=== PATIENT | male | born 1980 | race Caucasian/White ===

== ENCOUNTER 2017-02-05 22:18 | Emergency (ER) | payer OTHER ==
--- NOTE | ~2017-02-05 | ER ---
PATIENT'S NAME: [facility] AGE: 37 Y [address] ROOM: [place] [address] LOCATION: [facility] ADMIT DATE: 02/05/2017 ER/Outpatient Report DISCHARGE DATE: 02/06/2017 FAMILY PHYSICIAN: PHYSICIAN, NO ATTENDING PHYSICIAN: Anjali Espinoza Admission date and time documented on the medical record. I saw the patient at 2225 hours. CHIEF COMPLAINT: Nausea, vomiting, abdominal fullness, generalized weakness, lightheadedness, head pressure, and what sounds like a syncopal episode with possible shaking seizure-type activity. 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 I believe he went home from [facility], made a smoothie. He is trying to use a low-carb diet. He reduced a supplement in his smoothie. He got in the car, was [place] [address], when he got a lump in his upper abdomen, got nauseated. He then had some lightheadedness, dizziness, felt like he might pass out. Somehow, he called his and got off the road around [place] and does not remember anything after that incident. He was found in the bathroom in [place] collapsed, having had vomited. Paramedics were dispatched, and they brought the patient to the emergency department for evaluation. On arrival here, the patient was awake. However, he was somewhat confused and disoriented. He was able to speak, follow commands, but was not mentally sharp. His mental sharpness markedly improved to normal through the emergency room course. He had generalized weakness. He was still a bit lightheaded here in the emergency department. He did have some chest pressure and head pressure. Mild nausea but had no further vomiting here in the emergency department. He was chilled. No fever. No recent colds, coughs, or flus. No history of any heart problems, heart disease, or lung disease. No history of CVA, TIA, brain tumors, or seizure disorders. He has no endocrine problems with diabetes or thyroid disease. He has had no recent fall or trauma. No head trauma. No accidents. He had some fullness in his head, but no head pain. No eyes, ears, nose, throat, neck, or spine pain. No joint or muscle swelling, redness, or pain. No skin eruptions or rash. No history of psych issues. HOME MEDICATIONS: None. ALLERGIES: NONE. PATIENT'S NAME: [facility] AGE: 37 Y [address] ROOM: [place] [address] LOCATION: [facility] ADMIT DATE: 02/05/2017 ER/Outpatient Report DISCHARGE DATE: 02/06/2017 FAMILY PHYSICIAN: PHYSICIAN, NO ATTENDING PHYSICIAN: Anjali Espinoza SOCIAL HISTORY: Nonsmoker, nondrinker. SIGNIFICANT PAST MEDICAL HISTORY: Negative. OPERATIONS: None. REVIEW OF SYSTEMS: All systems reviewed by me are negative with the exception of those discussed in the history of the present illness. PHYSICAL EXAMINATION: VITAL SIGNS: Temperature 96.8 tympanic, pulse 68 and regular, respirations 16, blood pressure 138/62, O2 saturation on room air is 95%. HEAD: Normocephalic. No abrasion, contusion, laceration, swelling of the scalp or face. EYES: Extraocular muscles intact. PERRL. Sclerae and conjunctivae clear, nonicteric. EARS: Clear TMs bilaterally. NOSE: Clear. THROAT: Clear. Mucous membranes moist. Teeth and jaw intact. NECK: No nuchal rigidity. No thyromegaly or cervical adenopathy. No carotid bruits. No tenderness. Full range of motion. SPINE: Nontender. No deformity. LUNGS: Clear. Good air flow in all lung brunner. No rales, rhonchi, or wheezes. HEART: Regular. Pulses are palpable. ABDOMEN: Soft, nondistended, nontender. Active bowel tones. No organomegaly or abnormal mass palpable. No CVA tenderness. EXTREMITIES: Moves all 4 extremities. No peripheral edema, cyanosis, or deformity. NEURO: GLORY stroke scale is zero. The patient is awake, cooperative. No lateralizing weakness, numbness, tingling, or loss of function. Became oriented here in the emergency department. Initially, he was a little bit confused. No seizure activity. [place] chilled and had a little bit shakiness of his extremities at times. No true rigors. SKIN: Clear. LABORATORY DATA AND X-RAYS: Chest x-ray showed no acute infiltrate or changes. We will review x-ray with the radiologist. EKG showed sinus rhythm. No acute ST elevation, ischemic change, or arrhythmia. PATIENT'S NAME: [facility] AGE: 37 Y [address] ROOM: [place], [place] [address] LOCATION: [facility] ADMIT DATE: 02/05/2017 ER/Outpatient Report DISCHARGE DATE: 02/06/2017 FAMILY PHYSICIAN: PHYSICIAN, NO ATTENDING PHYSICIAN: Anjali Espinoza Laboratory: Troponin was normal, CK-MB was normal, CPK was normal. Magnesium 2.2. CMS was normal except for a slightly elevated glucose 117. Sedimentation rate was 11. White count 6200, 60 segs, 33 lymphs, 5 monos, 1 eosinophil, hemoglobin was 14.6, hematocrit 42.8, platelet count was 223,000. PTT was 24, pro-time was 10.7, INR 1.0. CT scan of the head showed no intracranial bleed, midline shift, mass effect, or skull fracture. CT scan was read by Radiology, see dictated transcribed report. EMERGENCY DEPARTMENT COURSE: I did give the patient 1 L normal saline IV in the emergency room along with some Zofran 4 mg for nausea. On dismissal, the patient is awake, alert, responsive. Mentation was normal. He is able to get up. Vital signs remained stable, so I was able to dismiss the patient home. IMPRESSION: Suspected vasovagal activity with syncope. Etiology uncertain, but may be a supplement that started this whole issue, which he added to smoothie and drank. This initiated some upset of his stomach, nausea, ended up vomiting, lightheaded, dizzy, which sounded like a vasovagal activity, followed by syncope. He had resultant fullness in his head, fullness in his chest. The vomiting relieved fullness in his abdomen. Ended up being brought to the emergency department where he recovered. This is the first episode of this type that he has had. Again, etiology is uncertain at this time. I found no abnormalities on his scans, x-rays, EKGs, laboratory evaluation. PLAN: The patient responded well with hydration and time here in the emergency department. [place] like he could go home. Good rest. Good hydration. Balanced diet. Balanced exercise program. Return to the emergency room with his situation changes. I encouraged him to see his personal physician tomorrow Thursday afternoon or Friday for re-evaluation. I did discuss with the patient a little bit that with questionable seizure activity that might have been brought on by his syncope and vasovagal act event, he may have got hypoxic and had a little bit of seizure activity because of that, but his personal physician may want him to have EEG for completeness. Any recurrence of this activity may need to have further evaluation, cardiac, neurologic may be with an MRI. I did discuss this all with him and he understands. ANJALI ESPINOZA MD PATIENT'S NAME: [facility] AGE: 37 Y [address] ROOM: [place] [address] LOCATION: [facility] ADMIT DATE: 02/05/2017 ER/Outpatient Report DISCHARGE DATE: 02/06/2017 FAMILY PHYSICIAN: PHYSICIAN, NO ATTENDING PHYSICIAN: Anjali Espinoza/modl /[id number] d: 02/06/17 0154 t: 02/06/17 1902, OUTPATIENT REPORT
[2017-02-05 22:54] LABS: BASOPHIL % 0.2 %; EOSINOPHIL # 0.1 K/uL (0.0-0.5); EOSINOPHIL % 1.4 %; HEMATOCRIT 42.8 % (37.0-53.0); HEMOGLOBIN 14.6 g/dL (12.0-17.0); IMMATURE GRANULOCYTE % 0.6 %; LYMPHOCYTE # 2.1 K/uL (0.8-4.0); LYMPHOCYTE % 33.3 %; MCH 29.5 pg (27.0-34.0); MCHC 34.1 gm/dL (32.0-36.5); MCV 86.5 fl (83.0-98.0); MONOCYTE # 0.3 K/uL (0.0-1.0); MONOCYTE % 4.7 %; MPV 10.6 fl (9.4-12.4); NEUTROPHIL # (ANC) 3.7 K/uL (1.4-9.0); NEUTROPHIL % 59.8 %; NRBC % 0 /100WBC (0-0.00); PLATELET COUNT 223 K/uL (150-450); RBC 4.95 M/uL (4.00-6.00); RDW-CV 12.4 % (11.9-14.6); WBC 6.2 K/uL (4.0-11.0)
[2017-02-05 23:08] LABS: PROTIME 10.7 SECONDS (9.6-11.1); PTT 24 SECONDS (25-32)
[2017-02-05 23:17] LABS: CPK 121 IU/L (35-332)
[2017-02-05 23:54] LABS: ALBUMIN 4.2 gm/dL (3.5-5.0); ALK PHOS 61 IU/L (33-138); ANION GAP 12.8 (10.0-19.0); BLOOD UREA NITROGEN 21 mg/dL (6-24); CALCIUM 8.6 mg/dL (8.5-10.5); CHLORIDE 109 mMol/L (96-110); CO2 26 mMol/L (22-32); CREATININE 1.3 mg/dL (0.6-1.3); ESTIMATED GFR (MDRD EQUATION) > 60; POTASSIUM 3.8 mEq/L (3.7-5.1); SODIUM 144 mEq/L (135-145); TOTAL BILIRUBIN 0.3 mg/dL (0.0-1.5)
[2017-02-05 23:55] LABS: ALT 42 IU/L (12-78); AST 21 IU/L (10-40); MAGNESIUM 2.2 mg/dL (1.3-2.6)
== END 2017-02-06 00:19 | disposition disaster alternative care site (69) ==
LOC: GMED 22:18
PROVIDERS: Emergency Medicine
DX: R55 Syncope and collapse (principal)
CPT/HCPCS: J2405; J7030

== ENCOUNTER → 2017-02-05 | Outpatient (CLI) | payer OTHER | END | disposition disaster alternative care site (69) | LOC: GAMB 21:43 | DX: R53.1 Weakness (principal); R10.9 Unspecified abdominal pain | CPT/HCPCS: A0425; A0427 ==

== ENCOUNTER → 2017-02-11 | Outpatient (CLI) | payer OTHER ==
--- NOTE | ~2017-02-11 | NDGEN ---
PATIENT'S NAME: [facility] AGE: 37 Y [address] ROOM: [place] [address] LOCATION: [facility] ADMIT DATE: 02/11/2017 Neurodiagnostics DISCHARGE DATE: FAMILY PHYSICIAN: Pattie Soriano MD ATTENDING PHYSICIAN: Pattie Soriano PROCEDURE: ELECTROENCEPHALOGRAM DATE OF PROCEDURE: 02/11/2017 TEST: TECH: CLINICAL DIAGNOSIS: THE PATIENT IS A 37-YEAR-OLD MALE WITH HISTORY OF EPISODES OF LOSS OF CONSCIOUSNESS. THE PATIENT IS HAVING EEG TO EVALUATE FOR POSSIBILITY OF SEIZURES. DURATION OF EE minutes. REASON FOR EEG: Syncope/loss of consciousness. EEG FINDINGS: The patient is awake for the entire duration of EEG. During maximal activation, the patient shows a background of about 13 hertz in the posterior head regions which is up to 50 microvolts in voltage. There are symmetrical rhythmical waxing and waning. Activation procedures included photic stimulation between 3-30 hertz and hyperventilation for 3 minutes, which do not show any abnormalities. CLASSIFICATION: Normal, awake 10/20 scalp electrodes. IMPRESSION: This EEG is within normal limits. No epileptiform discharges or EEG seizures were seen during this recording. MD ANTHONY PATINO/modl /[id number] dtt: 02/14/17 1504 SAWYER RAM MOHAN R. dtd: 02/14/17 0848
== END | disposition disaster alternative care site (69) ==
LOC: GNEU 10:47
DX: R40.20 Unspecified coma (principal)